=== PATIENT | female | born 1995 | race Caucasian/White ===

== ENCOUNTER 2018-04-13 09:04 | Emergency (ER) | payer OTHER ==
[2018-04-13] MEDS ORDERED: MAGNESIUM CITRATE 296 ML BOTTLE PO ONE (09:21)
[2018-04-13] MEDS ORDERED: NA PHOS,M-B/NA PHOS,DI-BA (ADULT) 133 ML ENEMA PR ONE (09:21)
[2018-04-13] MEDS ORDERED: METOCLOPRAMIDE HCL 10 MG TABLET PO ONE (09:22)
--- NOTE | 2018-04-13 09:24 | ER Document Report ---
ED Medical Screen (RME) - General Chief Complaint: Constipation Stated Complaint: CONSTIPATION Time Seen by Provider: 04/13/18 09:15 Mode of Arrival: Ambulatory Information source: Patient TRAVEL OUTSIDE OF THE [place] IN LAST 30 DAYS: No - HPI Patient complains to provider of: Constipation Onset: Other - This 22-year-old female presents for evaluation of constipation over the last week, she has had chronic constipation in the past and has been attempting to improve her symptoms utilizing enemas, stool softeners, a small dose of magnesium citrate, but she is continued to have very hard stools with pain in her rectum over that time. Denies any fever or chills, chest pain, shortness of breath, complains of some abdominal pain, does not have a known history of hemorrhoids. - Related Data Allergies/Adverse Reactions: No Known Allergies Allergy (Verified 04/13/18 09:22) Past Medical History - Social History Chew tobacco use (# tins/day): No Frequency of alcohol use: Occasional Drug Abuse: None Renal/ Medical History: Denies: Hx Peritoneal Dialysis Past Surgical History: Reports: Hx Gynecologic Surgery - left ovary removed Physical Exam - Vital signs Vitals: Temp Pulse Resp BP Pulse Ox 98.5 F 79 14 139/84 H 98 04/13/18 09:10 04/13/18 09:10 04/13/18 09:10 04/13/18 09:10 04/13/18 09:10 Course - Re-evaluation Re-evalutation: This young lady with chronic constipation which is worse than usual today. She is tried multiple cqzr-wgi-olivhge remedies to try and help with her symptoms. She has had rectal bleeding as well. We will defer further examination to secondary provider however will initiate treatment of her constipation utilizing magnesium citrate, metoclopramide, enema. 04/13/18 09:22 I have seen and evaluated this patient and performed a rapid medical screening examination, he does not appear to have an immediate life threat however will require further investigation and disposition determination by another provider. 04/13/18 09:23 - Vital Signs Vital signs: Temp Pulse Resp BP Pulse Ox 98.5 F 79 14 139/84 H 98 04/13/18 09:10 04/13/18 09:10 04/13/18 09:10 04/13/18 09:10 04/13/18 09:10
--- NOTE | 2018-04-13 10:15 | ER Document Report ---
ED General - General Chief Complaint: Constipation Stated Complaint: CONSTIPATION Time Seen by Provider: 04/13/18 09:15 Mode of Arrival: Ambulatory TRAVEL OUTSIDE OF THE [place] IN LAST 30 DAYS: No - HPI Notes: Patient is a 22-year-old female with a history of constipation who presents to the ED complaining of feeling constipated and intermittent cramping over the last week and not having a bowel movement for 5-6 days. Patient states that she does have pain in her rectum with any bowel movement and believes that she may have had a fissure which she has had before. Denies any drug allergies. She is still able to eat and drink without any difficulties. No other concerns or complaints. No vaginal discharge, odor, bleeding. Denies any headache, fever, URI, sore throat, chest pain, palpitations, syncope, cough, shortness of breath, wheeze, dyspnea, nausea/vomiting/diarrhea, urinary retention, dysuria, hematuria, back pain, loss of control of bowel or bladder, numbness/tingling, or rash. - Related Data Allergies/Adverse Reactions: No Known Allergies Allergy (Verified 04/13/18 09:22) Past Medical History - General Information source: Patient - Social History Smoking Status: Never Smoker Chew tobacco use (# tins/day): No Frequency of alcohol use: Occasional Drug Abuse: None Family History: Reviewed & Not Pertinent Patient has suicidal ideation: No Patient has homicidal ideation: No Renal/ Medical History: Denies: Hx Peritoneal Dialysis Past Surgical History: Reports: Hx Gynecologic Surgery - left ovary removed Review of Systems - Review of Systems -: Yes All other systems reviewed and negative Physical Exam - Vital signs Vitals: Temp Pulse Resp BP Pulse Ox 98.5 F 79 14 139/84 H 98 04/13/18 09:10 04/13/18 09:10 04/13/18 09:10 04/13/18 09:10 04/13/18 09:10 - Notes Notes: PHYSICAL EXAMINATION: GENERAL: Well-appearing, well-nourished and in no acute distress. LUNGS: Breath sounds clear to auscultation bilaterally and equal. No wheezes rales or rhonchi. HEART: Regular rate and rhythm without murmurs, rubs, gallops. ABDOMEN: Soft, nontender, nondistended abdomen. No guarding, no rebound. No masses appreciated. Normal bowel sounds present. No CVA tenderness bilaterally. Rectal: (witnessed by female RN Rodolfo). No impaction noted. I could not feel any obvious stool in the vault. + small fissure noted. No obvious hemorrhoids. Extremities: No cyanosis, clubbing, or edema b/l. Peripheral pulses 2+. Capillary refill less than 3 seconds. NEUROLOGICAL: Normal speech, normal gait. PSYCH: Normal mood, normal affect. SKIN: Warm, Dry, normal turgor, no rashes or lesions noted. Course - Re-evaluation Re-evalutation: 04/13/18 14:48 Patient is an afebrile, well-hydrated, 22-year-old female who presents to the ED with constipation and probable mild ileus. Vitals are acceptable without any significant tachycardia, tachypnea, or hypoxia. PE is otherwise unremarkable. Patient's abdomen is soft and nontender. She is nontoxic- appearing and is tolerating p.o. without difficulties. HCG neg. See x-ray result. Patient did not have any impaction on exam. Patient was given a soapsuds mineral oil enema, mag citrate, half a fleets enema which did produce a large bowel movement. Patient states that she is feeling 100% better and is ready to go home. I did review with Dr. Floyd who is in agreement with dispo/ plan. No abd surgical history. Because patient was able to have a bowel movement despite having a possible mild ileus on x-ray, patient may be discharged to home. No further labs or imaging warranted at this time. Low suspicion/risk for acute appendicitis, bowel obstruction, acute cholecystitis, acute cholangitis, perforated diverticulitis, incarcerated hernia, pancreatitis , perforated ulcer, peritonitis, sepsis, pelvic inflammatory disease, ectopic , tubo-ovarian abscess, ovarian torsion, or other systemic emergent condition at this time. Patient is aware that her condition can change from initial presentation and she needs to monitor symptoms closely and seek medical attention if any acute changes. Conservative measures otherwise for symptoms. Recheck with your PCM in 2-3 days. Consider consult with a nursing staffing coordinator. Return to the ED with any worsening/concerning symptoms otherwise as reviewed in discharge. Patient is in agreement. - Vital Signs Vital signs: Temp Pulse Resp BP Pulse Ox 98.5 F 79 14 139/84 H 98 04/13/18 09:10 04/13/18 09:10 04/13/18 09:10 04/13/18 09:10 04/13/18 09:10 Discharge - Discharge Clinical Impression: Constipation Qualifiers: Constipation type: unspecified constipation type Qualified Code(s): K59.00 - Constipation, unspecified Condition: Stable Disposition: HOME, SELF-CARE Instructions: Constipation ([facility]) Additional Instructions: Maintain adequate fluid and food intake High-fiber diet MiraLAX as directed Monitor for any worsening symptoms Make sure you are staying hydrated enough to urinate and have normal BM's Recheck with your PCM in 2-3 days Consider consult with Gastroenterology for ongoing/worsening symptoms Return to the ED with any worsening symptoms and/or development of fever, headache, chest pain, palpitations, syncope, shortness of breath, trouble breathing, abdominal pain, n/v/d, blood in stool/urine, weakness, or other worsening symptoms that are concerning to you. Forms: Elevated Blood Pressure Referrals: MIRIAM ODEN MD [ACTIVE STAFF] - Follow up as needed
[2018-04-13] MEDS ORDERED: MINERAL OIL 30 ML UDCUP PR ONE (12:29)
--- NOTE | 2018-04-13 13:08 | RADIOLOGY REPORT (SQ) ---
EXAM DESCRIPTION: ABDOMEN 2 VIEWS COMPLETED DATE/TIME: 04/13/2018 12:22 pm REASON FOR STUDY: concern for ileus COMPARISON: None. NUMBER OF VIEWS: Three views TECHNIQUE: Supine and erect/decubitus radiographic images of the abdomen acquired. LIMITATIONS: None. FINDINGS: FREE AIR: None. No abnormal gas collections. LUNG BASES: Clear. BOWEL GAS PATTERN: Gas and stool are seen throughout nondilated loops of bowel noting several small a ir-fluid levels on upright imaging. CALCIFICATIONS: A rounded calcific density projecting adjacent to the L4 left transverse process may represent ureterolith, enteric contents, or other. The visceral in soft tissue shadows are otherwise unremarkable. SOFT TISSUES: No gross mass or suggestion of organomegaly. HARDWARE: None in the abdomen. BONES: No acute fracture. No worrisome bone lesions. OTHER: No other significant finding. IMPRESSION: No evidence of obstruction. Scattered small bowel air-fluid levels suggest ileus. TECHNICAL DOCUMENTATION: JOB ID: [id number] [employer]- All Rights Reserved Reading location - IP/workstation name: [email or web address]
[2018-04-13 16:04] VITALS: BP 103/64
== END 2018-04-13 15:30 | disposition home or self-care (01) ==
LOC: ER 09:04
DX: K59.00 Constipation, unspecified (principal); K62.89 Other specified diseases of anus and rectum
CPT/HCPCS: 99284; 36415; 84703; 74019; J3490 ×3